=== PATIENT | male | born 1965 | race Caucasian/White ===

== ENCOUNTER 2016-04-02 11:03 | Day surgery (SDC) | payer BC, MEDICARE ==
[2016-03-26 15:42] LABS: HEMATOCRIT 45.3 % (37.9-51.0); HEMOGLOBIN 15.5 g/dL (13.5-17.0); HGB HCT DIFFERENCE 1.2; MEAN CORPUSCULAR HEMOGLOBIN 31.2 pg (27.0-33.4); MEAN CORPUSCULAR HGB CONC 34.2 g/dL (32.0-36.0); MEAN CORPUSCULAR VOLUME 91 fl (80-97); RED BLOOD COUNT 4.96 10^6/uL (4.35-5.55); RED CELL DISTRIBUTION WIDTH 13.2 % (11.5-14.0); WHITE BLOOD COUNT 12.1 10^3/uL (4.0-10.5)
[2016-03-26 15:48] LABS: PROTHROMBIN TIME 12.1 SEC (11.4-15.4)
[2016-03-26 15:49] LABS: APPEARANCE,URINE CLEAR; BILIRUBIN,URINE NEGATIVE (NEGATIVE); GLUCOSE, URINE NEGATIVE (NEGATIVE); KETONES,URINE NEGATIVE (NEGATIVE); LEUKOCYTE ESTERASE,URINE NEGATIVE (NEGATIVE); NITRITE,URINE NEGATIVE (NEGATIVE); PARTIAL THROMBOPLASTIN TIME 24.9 SEC (23.5-35.8); PROTEIN,URINE NEGATIVE (NEGATIVE); URINE SPECIFIC GRAVITY 1.011; UROBILINOGEN,URINE NEGATIVE mg/dL (<2.0)
--- NOTE | 2016-03-26 16:59 | EKG REPORT ---
SEVERITY:- NORMAL ECG - SINUS RHYTHM : Confirmed by: Joy Peters MD 26-Mar-2016 16:57:59
[~2016-04-02 11:03] MED LIST: CEFAZOLIN SODIUM 1 GM in DEXTROSE 5%-WATER 50 ML IV PRN
[2016-04-02] MEDS ORDERED: SODIUM BICARBONATE 8.4% INJ 50 MEQ/50 ML DISP.SYRIN ONE (12:09)
[2016-04-02] MEDS ORDERED: BUPIVACAINE HCL 0.25% /EPINEPHRINE INJ/PF 30 ML SDV ONE (12:09)
[2016-04-02] MEDS ORDERED: LIDOCAINE 1% INJ-PF (10 MG/ML) 30 ML SDV ONE (12:09)
[2016-04-02] MEDS ORDERED: EPHEDRINE SULFATE INJ 50 MG/1 ML AMPULE ONE (13:36)
[2016-04-02] MEDS ORDERED: FENTANYL CITRATE INJ/PF 250 MCG/5 ML AMPULE ONE (13:36)
[2016-04-02] MEDS ORDERED: MIDAZOLAM 2 MG/2 ML INJ ONE (13:36)
[2016-04-02] MEDS ORDERED: DEXMEDETOMIDINE INJ 80 MCG/20 ML VIAL IV ONE (13:37)
[2016-04-02] MEDS ORDERED: PROPOFOL INJ 200 MG/20 ML VIAL IV ONE (13:37)
[2016-04-02] MEDS ORDERED: CEFAZOLIN INJ 1 GM VIAL ONE (13:51)
[2016-04-02] MEDS ORDERED: OXYCODONE-ACETAMINOPHEN 5-325 MG TABLET PO PRN ×3 (14:11→15:41)
[2016-04-02] MEDS ORDERED: MEPERIDINE HCL/PF INJ 25 MG/1 ML DISP.SYRIN IV PRN (14:11)
[2016-04-02] MEDS ORDERED: PROMETHAZINE HCL INJ 25 MG/1 ML VIAL IV PRN ×2 (14:11)
[2016-04-02] MEDS ORDERED: FENTANYL CITRATE INJ/PF 100 MCG/2 ML AMPUL IV PRN ×3 (14:11)
[2016-04-02] MEDS ORDERED: DIPHENHYDRAMINE HCL 50 MG/ML VIAL IV PRN (14:11)
--- NOTE | 2016-04-02 15:27 | OPERATIVE REPORT E ---
Operative Report NAME: ADENIKE STAPLES : 1965 AGE: 51Y DATE OF SURGERY: 04/02/2016 ROOM: PREOPERATIVE DIAGNOSIS: Nonfunctioning spinal cord stimulating system. POSTOPERATIVE DIAGNOSIS: Nonfunctioning spinal cord stimulating system. OPERATION: Removal of spinal cord stimulating system to include lead, lead connector, and pulse generator. COMPLICATIONS: None. BLOOD LOSS: Minimal/2 mL. SURGEON: NIMISHA LLANOS M.D. SURGICAL ASSISTANTS: None. ANESTHESIA: MAC. PROCEDURE NOTE: After obtaining informed consent, advising the patient of the risks and benefits, including infection, allergic reaction, chronic postsurgical pain, and , he was taken to the operating room and placed comfortably in the prone position. MAC anesthesia was administered. He was then prepped in the usual fashion, 2 times with chlorhexidine and allowed to dry appropriately 3 minutes prior to draping. After draping, at preselected sites, using fluoroscopy, the lead connector, lead, and pulse generator were identified. Beginning over the lead connector site, local anesthetic was infiltrated using 1% lidocaine followed by bicarb, followed by 0.25% bupivacaine with epinephrine. This was then injected over the pulse generator site over the right gluteal region. Sharp dissection was performed over the connector site, the lead connector was readily identified, and delivered from the surgical site. The lead was then pulled with ease, removing it in its entirety. This was transected. Attention was then directed to the pulse generator pocket. A small incision was made. The generator was readily delivered, and all equipment was removed. Both wounds were then copiously irrigated. They were then closed with inverted vertical mattress sutures using 3-0 Polysorb. Skin edges came nicely together in both regions, and Dermabond tape followed by Dermabond cement were then placed. When this was allowed to dry, sponge Tegaderm dressings were placed. He was then taken to the PACU for further postoperative care and monitoring. DICTATING PHYSICIAN: NIMISHA LLANOS M.D. [id number] PHY#: [id number] ID: [id number] JOB#: [id number] ACCT: [id number] cc:NIMISHA LLANOS M.D. >
[2016-04-02 16:10] VITALS: BP 128/73
[2016-04-02] MEDS ORDERED: LIDOCAINE 2% INJ-PF (20 MG/ML) 10 ML AMPUL ONE (19:04)
== END 2016-04-02 16:07 | disposition home or self-care (01) ==
LOC: OROUT 11:03
PROVIDERS: ATTEND Pain Medicine Interventional Pain Medicine
PROC: 0JPT0MZ Removal of Stimulator Generator from Trunk Subcutaneous Tissue and Fascia, Open Approach (ICD-10-PCS; principal; 2016-04-02 13:30)
DX: M54.17 Radiculopathy, lumbosacral region (principal); I10 Essential (primary) hypertension; M19.90 Unspecified osteoarthritis, unspecified site; G89.4 Chronic pain syndrome; G90.59 Complex regional pain syndrome I of other specified site; M47.897 Other spondylosis, lumbosacral region; M54.12 Radiculopathy, cervical region; Z79.899 Other long term (current) drug therapy; Z79.82 Long term (current) use of aspirin; Z88.8 Allergy status to other drugs, medicaments and biological substances; Z88.5 Allergy status to narcotic agent; Z85.828 Personal history of other malignant neoplasm of skin; Z79.01 Long term (current) use of anticoagulants; Z79.891 Long term (current) use of opiate analgesic; Z87.891 Personal history of nicotine dependence
CPT/HCPCS: 93005; 36415; 85027; 85610; 85730; 81001; 72020; 93010; 63688; J2250; J3490 ×6; J0690; J3010; J2704

== ENCOUNTER → 2016-05-18 | Outpatient (CLI) | payer BC, MEDICARE | LOC: RAD 07:10 | PROVIDERS: ATTEND Pain Medicine Interventional Pain Medicine | DX: M54.12 Radiculopathy, cervical region (principal); M54.17 Radiculopathy, lumbosacral region | CPT/HCPCS: 72141; 72148 ==

== ENCOUNTER → 2016-05-28 | Outpatient (CLI) | payer BC, MEDICARE | LOC: RAD 09:23 | PROVIDERS: ATTEND Internal Medicine | DX: H81.43 Vertigo of central origin, bilateral (principal) | CPT/HCPCS: 70553; A9577 ==

== ENCOUNTER → 2016-08-15 | Outpatient (CLI) | payer BC, MEDICARE ==
[2016-08-15 11:09] LABS: HEMATOCRIT 43.1 % (37.9-51.0); HEMOGLOBIN 14.5 g/dL (13.5-17.0); HGB HCT DIFFERENCE 0.4; MEAN CORPUSCULAR HEMOGLOBIN 31.7 pg (27.0-33.4); MEAN CORPUSCULAR HGB CONC 33.6 g/dL (32.0-36.0); MEAN CORPUSCULAR VOLUME 94 fl (80-97); RED BLOOD COUNT 4.57 10^6/uL (4.35-5.55); RED CELL DISTRIBUTION WIDTH 13.1 % (11.5-14.0); WHITE BLOOD COUNT 9.1 10^3/uL (4.0-10.5)
[2016-08-15 11:38] LABS: ALANINE AMINOTRANSFERASE 28 U/L (21-72); ANION GAP 12 (5-19); BLOOD UREA NITROGEN 12 mg/dL (7-20); CALCIUM 9.6 mg/dL (8.4-10.2); CARBON DIOXIDE 25 mmol/L (22-30); CHLORIDE 102 mmol/L (98-107); CREATININE RESULT 0.72 mg/dL (0.52-1.25); GLUCOSE 114 mg/dL (75-110); POTASSIUM 4.2 mmol/L (3.6-5.0); SODIUM 139.2 mmol/L (137-145)
[2016-08-15 11:44] LABS: ERYTHROCYTE SEDIMENTATION RATE 7 mm/hr (0-20)
== END ==
LOC: OD 10:15
PROVIDERS: ATTEND Specialist
DX: G43.909 Migraine, unspecified, not intractable, without status migrainosus (principal)
CPT/HCPCS: 36415; 80048; 84460; 85027; 85652

== ENCOUNTER → 2016-09-24 | Outpatient (CLI) | payer BC, MEDICARE ==
[2016-09-24 14:35] LABS: ABSOLUTE BASOPHILS # (AUTO) 0.1 10^3/uL (0.0-0.2); ABSOLUTE EOSINOPHILS # (AUTO) 0.1 10^3/uL (0.0-0.6); ABSOLUTE LYMPHOCYTES (AUTO) 2.3 10^3/uL (0.5-4.7); ABSOLUTE MONOCYTES (AUTO) 0.4 10^3/uL (0.1-1.4); ABSOLUTE NEUT (AUTO) 6.3 10^3/uL (1.7-8.2); BASOPHILS % (AUTO) 1.3 % (0-2); HEMATOCRIT 43.2 % (37.9-51.0); HEMOGLOBIN 14.4 g/dL (13.5-17.0); MEAN CORPUSCULAR HEMOGLOBIN 31.5 pg (27.0-33.4); MEAN CORPUSCULAR HGB CONC 33.3 g/dL (32.0-36.0); MEAN CORPUSCULAR VOLUME 95 fl (80-97); MONOCYTES % (AUTO) 4.8 % (3-13); RED BLOOD COUNT 4.57 10^6/uL (4.35-5.55); RED CELL DISTRIBUTION WIDTH 12.9 % (11.5-14.0); SEGMENTED NEUTROPHILS % (AUTO) 67.9 % (42-78); WHITE BLOOD COUNT 9.2 10^3/uL (4.0-10.5)
== END ==
LOC: LAB 14:00
PROVIDERS: ATTEND Physician Assistant
DX: M79.1 Myalgia (principal)
CPT/HCPCS: 36415; 85025; 86038; 86430

== ENCOUNTER 2017-11-04 05:44 | Day surgery (SDC) | payer OTHER, MEDICARE ==
--- NOTE | 2017-10-31 10:58 | RADIOLOGY REPORT (SQ) ---
EXAM DESCRIPTION: CHEST PA/LATERAL COMPLETED DATE/TIME: 10/31/2017 10:26 am REASON FOR STUDY: PRE OP COMPARISON: 12/26/2015 EXAM PARAMETERS: NUMBER OF VIEWS: two views TECHNIQUE: Digital Frontal and Lateral radiographic views of the chest acquired. RADIATION DOSE: NA LIMITATIONS: none FINDINGS: LUNGS AND PLEURA: No opacities, masses or pneumothorax. No pleural effusion. MEDIASTINUM AND HILAR STRUCTURES: No masses or contour abnormalities. HEART AND VASCULAR STRUCTURES: Heart normal size. No evidence for failure. BONES: No acute findings. HARDWARE: None in the chest. OTHER: No other significant finding. IMPRESSION: NO SIGNIFICANT RADIOGRAPHIC FINDING IN THE CHEST. TECHNICAL DOCUMENTATION: JOB ID: [id number] [employer]- All Rights Reserved Reading location - IP/workstation name: [email or web address]
[2017-10-31 11:08] LABS: HEMATOCRIT 46.8 % (37.9-51.0); HEMOGLOBIN 15.7 g/dL (13.5-17.0); MEAN CORPUSCULAR HEMOGLOBIN 30.8 pg (27.0-33.4); MEAN CORPUSCULAR HGB CONC 33.7 g/dL (32.0-36.0); MEAN CORPUSCULAR VOLUME 92 fl (80-97); PLATELET COUNT 317 10^3/uL (150-450); RED BLOOD COUNT 5.11 10^6/uL (4.35-5.55); RED CELL DISTRIBUTION WIDTH 12.7 % (11.5-14.0); WHITE BLOOD COUNT 8.6 10^3/uL (4.0-10.5)
[2017-10-31 11:16] LABS: INTERNATIONAL RATION (INR) 0.87; PROTHROMBIN TIME 12.3 SEC (11.4-15.4)
[2017-10-31 11:17] LABS: PARTIAL THROMBOPLASTIN TIME 30.1 SEC (23.5-35.8)
[2017-10-31 11:43] LABS: APPEARANCE,URINE CLEAR; BILIRUBIN,URINE NEGATIVE (NEGATIVE); COLOR,URINE YELLOW; GLUCOSE, URINE NEGATIVE (NEGATIVE); KETONES,URINE NEGATIVE (NEGATIVE); LEUKOCYTE ESTERASE,URINE NEGATIVE (NEGATIVE); NITRITE,URINE NEGATIVE (NEGATIVE); PROTEIN,URINE NEGATIVE (NEGATIVE); UROBILINOGEN,URINE NEGATIVE mg/dL (<2.0)
--- NOTE | 2017-10-31 12:27 | EKG REPORT ---
SEVERITY:- NORMAL ECG - SINUS RHYTHM : Confirmed by: Richard Camacho MD 31-Oct-2017 12:26:39
[~2017-11-04 05:44] MED LIST changes: +CEFAZOLIN 1 GM/D5W RTU 1 GM/50 ML RTUPB IV PRN; -CEFAZOLIN SODIUM 1 GM in DEXTROSE 5%-WATER 50 ML IV PRN; +LACTATED RINGERS 1000 ML IV PRN; +LIDOCAINE 0.5% INJ-PF (5 MG/ML) 50 ML SDV SUBCUT PRN
[2017-11-04] MEDS ORDERED: LIDOCAINE 2% INJ-PF (20 MG/ML) 10 ML AMPUL ONE (06:25)
[2017-11-04] MEDS ORDERED: FENTANYL CITRATE INJ/PF 100 MCG/2 ML AMPUL ONE (06:25)
[2017-11-04] MEDS ORDERED: ONDANSETRON HCL INJ/PF 4 MG/2 ML SDV ONE (06:26)
[2017-11-04] MEDS ORDERED: MIDAZOLAM 2 MG/2 ML INJ ONE (06:26)
[2017-11-04] MEDS ORDERED: PROPOFOL INJ 200 MG/20 ML VIAL IV ONE ×2 (06:26→09:22)
[2017-11-04] MEDS ORDERED: SODIUM BICARBONATE 8.4% INJ 50 MEQ/50 ML DISP.SYRIN ONE (06:34)
[2017-11-04] MEDS ORDERED: BUPIVACAINE HCL 0.25% /EPINEPHRINE INJ/PF 30 ML SDV ONE (06:34)
[2017-11-04] MEDS ORDERED: LIDOCAINE 1% INJ-PF (10 MG/ML) 30 ML SDV ONE (06:34)
[2017-11-04] MEDS ORDERED: PROMETHAZINE HCL INJ 25 MG/1 ML VIAL IV PRN ×2 (08:27)
[2017-11-04] MEDS ORDERED: DIPHENHYDRAMINE HCL 50 MG/ML VIAL IV PRN (08:27)
[2017-11-04] MEDS ORDERED: FENTANYL CITRATE INJ/PF 100 MCG/2 ML AMPUL IV PRN ×3 (08:27)
[2017-11-04] MEDS ORDERED: ONDANSETRON HCL INJ/PF 4 MG/2 ML SDV IV PRN ×2 (08:27→09:26)
[2017-11-04] MEDS ORDERED: MEPERIDINE HCL/PF INJ 25 MG/1 ML DISP.SYRIN IV PRN (08:27)
[2017-11-04] MEDS ORDERED: CEFAZOLIN INJ 1 GM VIAL ONE (09:14)
[2017-11-04] MEDS ORDERED: OXYCODONE-ACETAMINOPHEN 5-325 MG TABLET PO PRN (09:25)
--- NOTE | 2017-11-04 10:21 | OPERATIVE REPORT E ---
Operative Report NAME: ADENIKE STAPLES : 1965 AGE: 52Y DATE OF SURGERY: 11/04/2017 ROOM: PREOPERATIVE DIAGNOSIS: 1. LUMBAR RADICULOPATHY AND CHRONIC BACK PAIN. 2. POST LAMINECTOMY SYNDROME. POSTOPERATIVE DIAGNOSIS: 1. LUMBAR RADICULOPATHY AND CHRONIC BACK PAIN. 2. POST LAMINECTOMY SYNDROME. OPERATION: Surgical implantation of right and left spinal cord stimulating leads under fluoroscopic guidance. Implantation of programmable rechargeable pulse generator and complex programing and fluoroscopy. SURGEON: NIMISHA LLANOS M.D. INDICATIONS: Intractable back and lower extremity pain, responsive to a trial of without patient's spinal cord stimulation. WATER PURIFIER: Zeinab García MD ANESTHESIA: MAC. BLOOD LOSS: Minimal. SPECIMENS REMOVED: None. COMPLICATIONS: None. PROCEDURE NOTE: After obtaining informed consent and advising the patient of the risks and benefits, including serious neurological injury, bleeding, and infection, paralysis, poor stimulation patterns, poor pain control, and allergic reaction and , he was taken to the operating room and placed comfortably in the prone position. MAC anesthesia was administered after monitors were applied. He was prepped in the usual fashion with chlorhexidine with appropriate drying time prior to draping. After draping he was evaluated under fluoroscopy. A suitable entrance site to the lumbar spine, selecting the T12-L1 interspace as the target was identified. The skin in anatomical location was identified below this for a creation of the lumbar incision as well as the pulse generator pocket which has been preselected in senior resident care director. Using local anesthesia 1% lidocaine with bicarb followed by 0.25% bupivacaine with epinephrine, the field was blocked. When suitable anesthesia had taken place, dissection was initiated. Sharp and blunt dissection was performed down to the lumbar fascia which was readily identified due to the patient's thin body habitus. A suitable working zone was created. Simultaneously, the pulse generator pocket was created by Dr. García. Again, using fluoroscopy, after further anesthetization of paraspinal musculature down to the T12-L1 interspace, the 14-gauge Touhy needles here inserted beginning on the left followed by advancement of the Octrode. This was then repeated on the right. Lateral views were taken to ensure satisfactory and safe location of the electrodes. The electrodes were advanced up to the top of T7 and the bottom of T7, right and left respectively. Trial stimulation was initiated. Very satisfactory location of stimulation was obtained in all desired locations. Decision was made to proceed with completing the implant. The left needle was removed followed by placement of the tubular anchor. It should be noted that pursestring had been previously placed during the stimulation trial. The pursestring was tightened and secured to the anchor followed by distal stay suture. This was repeated on the right side. When suitable anchoring was completed, the leads were tunneled to the posterior outer pocket after local anesthesia had been applied. The leads were then secured down to the lumbar fascia in an effort to assure comfort for the patient postoperatively. The leads were connected to the pulse generator and tested for impedance. These were all satisfactory. All of the wounds were copiously irrigated with Betadine-containing irrigation solution. They were then closed with interrupted vertical inverted mattress sutures using 3-0 Polysorb. This was followed by Dermabond tape and cement, followed by Telfa and sponge and Tegaderms. He did quite well and was taken to the PACU for further postoperative care and monitoring. DICTATING PHYSICIAN: NIMISHA LLANOS M.D. [id number] PHY#: [id number] ID: [id number] JOB#: [id number] ACCT: [id number] cc:NIMISHA LLANOS M.D. >
--- NOTE | 2017-11-04 10:36 | RADIOLOGY REPORT (SQ) ---
EXAM DESCRIPTION: THORACOLUMBAR SPINE AP/LAT; NO CHG FLUORO COMPLETED DATE/TIME: 11/04/2017 9:14 am REASON FOR STUDY: SPINAL STIMULATOR G89.4 CHRONIC PAIN SYNDROME COMPARISON: None. FLUOROSCOPY TIME: 4 minutes 11 digital radiographic images saved to PACS. TECHNIQUE: Intra-operative images acquired during surgical procedure to evaluate progress. NUMBER OF IMAGES: 11 C-arm images LIMITATIONS: None. FINDINGS: Intra procedural imaging and fluoro during spinal cord stimulator placement by Dr. Karley kearns IMPRESSION: Intra procedural imaging and fluoro COMMENT: Quality ID [id number]: Final reports for procedures using fluoroscopy that document radiation exp osure indices, or exposure time and number of fluorographic images (if radiation exposure indices are not available) Please consult full operative report of the attending physician for description of the procedure. TECHNICAL DOCUMENTATION: JOB ID: [id number] [employer]- All Rights Reserved Reading location - IP/workstation name: [email or web address]
--- NOTE | 2017-11-04 10:36 | RADIOLOGY REPORT (SQ) ---
EXAM DESCRIPTION: THORACOLUMBAR SPINE AP/LAT; NO CHG FLUORO COMPLETED DATE/TIME: 11/04/2017 9:14 am REASON FOR STUDY: SPINAL STIMULATOR G89.4 CHRONIC PAIN SYNDROME COMPARISON: None. FLUOROSCOPY TIME: 4 minutes 11 digital radiographic images saved to PACS. TECHNIQUE: Intra-operative images acquired during surgical procedure to evaluate progress. NUMBER OF IMAGES: 11 C-arm images LIMITATIONS: None. FINDINGS: Intra procedural imaging and fluoro during spinal cord stimulator placement by Dr. Karley kearns IMPRESSION: Intra procedural imaging and fluoro COMMENT: Quality ID [id number]: Final reports for procedures using fluoroscopy that document radiation exp osure indices, or exposure time and number of fluorographic images (if radiation exposure indices are not available) Please consult full operative report of the attending physician for description of the procedure. TECHNICAL DOCUMENTATION: JOB ID: [id number] [employer]- All Rights Reserved Reading location - IP/workstation name: [email or web address]
[2017-11-04 10:58] VITALS: BP 121/78
== END 2017-11-04 10:40 | disposition home or self-care (01) ==
LOC: OROUT 05:44
PROVIDERS: ATTEND Pain Medicine Interventional Pain Medicine
DX: G89.4 Chronic pain syndrome (principal); M54.16 Radiculopathy, lumbar region; M96.1 Postlaminectomy syndrome, not elsewhere classified; I10 Essential (primary) hypertension; M19.90 Unspecified osteoarthritis, unspecified site; K50.90 Crohn's disease, unspecified, without complications; N40.0 Benign prostatic hyperplasia without lower urinary tract symptoms; G90.522 Complex regional pain syndrome I of left lower limb; Z79.899 Other long term (current) drug therapy; Z87.891 Personal history of nicotine dependence; Z85.828 Personal history of other malignant neoplasm of skin; Z88.5 Allergy status to narcotic agent
CPT/HCPCS: 93005; 36415; 85027; 85610; 85730; 81001; 71046; 72080; 93010; 63685; 63650; C1778; J2250; J3490 ×4; J0690 ×2; J3010; J2405; J2704; 300